=== PATIENT | female | born 1945 | race Caucasian/White ===

== ENCOUNTER 2018-11-11 20:20 | Inpatient (IN) | payer MEDICARE, MEDICAID ==
[~2018-11-11] VITALS: Ht 162.6 cm; Wt 131.7 kg
[2018-11-11] MEDS ORDERED: ACETAMINOPHEN TAB 650MG DOSE (2X325MG) PO PRN (22:00)
[2018-11-11] MEDS ORDERED: MOM 30ML SUSPENSION UDC PO PRN (22:00)
[2018-11-11] MEDS ORDERED: MAALOX 30 ML SUSP *UDC PO PRN (22:00)
[2018-11-11 22:06] VITALS: BP 125/77
[2018-11-11 22:21] LABS: HEMATOCRIT 42.2 % (36.0-47.0); HEMOGLOBIN 13.5 g/dl (12.0-15.5); MEAN CORPUSCULAR HEMOGLOBIN 28.8 pg (27.0-33.0); MEAN CORPUSCULAR VOLUME 90.2 fl (80.0-96.0); PLATELET COUNT, AUTOMATED 291 10^3/uL (150-450); RED BLOOD COUNT 4.68 10^6/uL (4.00-5.40); WHITE BLOOD COUNT 7.9 10^3/uL (4.0-10.0)
[2018-11-11 22:34] LABS: INR 2.44
[2018-11-11] MEDS ORDERED: CORE6.25 PO (23:47)
[2018-11-11] MEDS ORDERED: METO25TA PO (23:47)
[2018-11-11] MEDS ORDERED: FLUO40CA PO (23:47)
[2018-11-11] MEDS ORDERED: AMIO200T40 PO (23:47)
[2018-11-11] MEDS ORDERED: XARE20TA PO (23:47)
[2018-11-11] MEDS ORDERED: KLOR10TA76 PO (23:47)
[2018-11-11] MEDS ORDERED: PANT40TA3 PO (23:47)
[2018-11-11] MEDS ORDERED: BUSP10TA PO (23:47)
[2018-11-11] MEDS ORDERED: CARD240C5 PO (23:47)
[2018-11-11] MEDS ORDERED: SILV1CRE60 TOP (23:47)
[2018-11-11] MEDS ORDERED: LASI80TA3 PO (23:47)
[2018-11-11] MEDS ORDERED: PRAV40TA2 PO (23:47)
[2018-11-11] MEDS ORDERED: KEFL500C17 PO (23:47)
[2018-11-11] MEDS ORDERED: CVS1CAP2 PO (23:47)
[2018-11-12] MEDS: NYSTATIN 100,000 UNITS/GM TOPICAL PWD 15 GM TOP SCH ×3 (00:12→21:13)
--- NOTE | 2018-11-12 00:18 | HPEPDOC ---
General Date of Admission November 11, 2018 at 21:42 Chief Complaint The patient is a 73-year-old female admitted with a reason for visit of CHF. Source: Patient, RN/MD History of Present Illness Ms. Rudolph is a 73 years old woman with hx/o AF and possibly CHF. She is transferred from [facility] for management of CHF due to lack of bed availability there. Pt c/o exertional dyspnea, progressively worsening since fall last year. Now she is so weak that she can hardly walk. She denies ever b eing diagnosed of "heart failure" or "CHF". She says she knows she has "AFib" and "big heart". Pt takes high dose Lasix and metolazone at home. Pt also c/o weakness and dizzy. Denies noticing any increase in leg swelling. At [facility], CT chest showed bilateral lung opacities, interpreted as "possible fibrosis, infiltrates or pulmonary edema". BNP 1666; Troponin normal. Pt Alvaro cough, chest pain, fever, chills or other change in her usual state of health. She was being treated for leg cellulitis with Keflex; but it looks like stasis dermatitis than any infectious process. Home Medications Scheduled Amiodarone HCl (Amiodarone HCl) 200 Mg Tablet, 200 MG PO BID, (Reported) Buspirone HCl (Buspirone HCl) 10 Mg Tablet, 10 MG PO BID, (Reported) Carvedilol (Coreg) 6.25 Mg Tablet, 6.25 MG PO BID, (Reported) Cephalexin (Keflex) 500 Mg Capsule, 500 MG PO TID, (Reported) FOR 10 DAYS Diltiazem Hcl (Cardizem Cd) 240 Mg Cap.er.24h, 240 MG PO DAILY, (Reported) Fluoxetine Hcl (Fluoxetine HCl) 40 Mg Capsule, 40 MG PO QAM, (Reported) Furosemide (Lasix) 80 Mg Tablet, 80 MG PO BID, (Reported) Lactobacillus Combo No.10 (Probiotic) 1 Each Capsule, 1 CAP PO BID, (Reported) Metolazone (Metolazone) 2.5 Mg Tablet, 2.5 MG PO BID, (Reported) Pantoprazole Sodium (Pantoprazole Sodium) 40 Mg Tablet.dr, 40 MG PO DAILY, (Reported) Potassium Chloride (Klor-Con M10) 10 Meq Tab.er.prt, 10 MEQ PO BID, (Reported) Pravastatin Sodium (Pravastatin Sodium) 40 Mg Tablet, 40 MG PO DAILY, (Reported) Rivaroxaban (Xarelto) 20 Mg Tablet, 20 MG PO DAILY, (Reported) Silver Sulfadiazine (Silvadene) 20 Gm Cream..g., 1 DOSE TOP DAILY, (Reported) APPLY TO AFFECTED AREA OF LEFT LEG Allergies Coded Allergies: TAPE (Verified Allergy, Unknown, 01/22/14) Past Medical History Medical History AF, PE, Chronic Lymphedema of the legs, HLD, CKD 3 Surgical History none reported Family History Significant Family History: No pertinent family hx Social History * Smoker: Denies Drugs: denies A-FIB/CHADSVASC A-FIB History Current/History of A-Fib/PAF?: Yes Current Oral Anticoagulant The: Yes Review of Systems Constitutional: Denies: Chills, Fever Eyes: Denies: Pain ENT: Denies: Head Aches Skin: Reports: Rash (bilateral leg dermatitis, chronic), Lesions Pulmonary: Reports: Dyspnea; Denies: Cough Cardiovascular: Reports: Edema; Denies: Chest Pain, Palpitations Gastrointestinal: Denies: Nausea, Vomiting, Abdominal Pain, Diarrhea, Constipation Genitourinary: Denies: Dysuria, Frequency Musculoskeletal: Denies: Neck Pain, Back Pain Neurological: Reports: Weakness; Denies: Numbness, Change in speech, Confusion Psych: Reports: Mood Normal; Denies: Anxiety Physical Examination General Exam: Positive: Alert, No Acute Distress Eye Exam: Positive: PERRLA ENT Exam: Positive: Atraumatic Neck Exam: Positive: Supple; Negative: JVD Chest Exam: Positive: Clear to auscultation, Rhonchi (minor ronchi) Heart Exam: Positive: Irregular Rhythm; Negative: Murmurs Abdomen Exam: Positive: Normal bowel sounds, Soft, Tenderness Extremity Exam: Positive: Edema (gross edema of b/l) Skin Exam: Positive: Nl turgor and temperature, Rash; Negative: Breakdown, Lesion Neuro Exam: Positive: Normal Speech, Strength at 5/5 X4 ext Psych Exam: Positive: Mental status NL, Mood NL Vital Signs Vital Signs Date Time Temp Pulse Resp B/P (MAP) Pulse Ox O2 Delivery O2 Flow Rate FiO2 11/11/18 22:06 99.5 115 16 125/77 (93) 95 2.0 Laboratory Data Labs 24H Laboratory Tests 2 11/11/18 22:15: Nucleated Red Blood Cells % (auto) 0.0, Prothrombin Time 27.0H, Prothromb Time International Ratio 2.44, Troponin I < 0.02 CBC/BMP Laboratory Tests 11/11/18 22:15 Red Blood Count 4.68, Mean Corpuscular Volume 90.2, Mean Corpuscular Hemoglobin 28.8, Mean Corpuscular Hemoglobin Concent 32.0, Red Cell Distribution Width 13.9 Assessment/Plan CHF Exacerbation, Acute on Chronic, with Pulmonary Edema and Hypoxia - No indication of pneumonia - Admit to inpatient - IV Lasix, I/O, daily wt; monitor electrolytes - Echo AF - Rate controlled - Continue home meds, including Xarelto Plan / VTE VTE Prophylaxis Ordered?: No VTE Exclusion Mechanical Proph: Other VTE Exclusion Pharmacological: Other Plan Anticipated Discharge: Home With Services JESSIE RICCI MD November 12, 2018 00:18
[2018-11-12 01:53] LABS: ALBUMIN 3.2 GM/DL (3.2-5.2); ALT/SGPT 17 U/L (12-78); BILIRUBIN,TOTAL 0.5 MG/DL (0.2-1.0); BLOOD UREA NITROGEN 35 MG/DL (7-18); CALCIUM LEVEL 9.1 MG/DL (8.8-10.2); CARBON DIOXIDE LEVEL 40 MEQ/L (21-32); CHLORIDE LEVEL 82 MEQ/L (98-107); CREATININE FOR GFR 2.08 MG/DL (0.55-1.30); GLOMERULAR FILTRATION RATE 24.8 (>39); GLUCOSE, FASTING 169 MG/DL (70-100); NT-PRO BNP 1636 PG/ML (<125); POTASSIUM SERUM 2.9 MEQ/L (3.5-5.1); SODIUM LEVEL 132 MEQ/L (136-145); TOTAL PROTEIN 8.3 GM/DL (6.4-8.2); TROPONIN I < 0.02 NG/ML (< 0.10)
[2018-11-12] MEDS ORDERED: POTASSIUM CHLORIDE 10 MEQ SR TABLET PO ONE ×2 (02:15→08:00)
[2018-11-12 04:00] VITALS: BP 140/88
[2018-11-12 05:41] LABS: HEMATOCRIT 40.2 % (36.0-47.0); HEMOGLOBIN 13.2 g/dl (12.0-15.5); MEAN CORPUSCULAR HEMOGLOBIN 28.5 pg (27.0-33.0); MEAN CORPUSCULAR HGB CONC 32.8 g/dl (32.0-36.5); MEAN CORPUSCULAR VOLUME 86.8 fl (80.0-96.0); PLATELET COUNT, AUTOMATED 296 10^3/uL (150-450); RED BLOOD COUNT 4.63 10^6/uL (4.00-5.40); WHITE BLOOD COUNT 7.4 10^3/uL (4.0-10.0)
[2018-11-12 05:45] LABS: CALCIUM LEVEL 9.6 MG/DL (8.8-10.2); CREATININE FOR GFR 2.08 MG/DL (0.55-1.30); GLOMERULAR FILTRATION RATE 24.8 (>39)
[2018-11-12] MEDS: FUROSEMIDE 40 MG/4 ML VIAL (J1940) IV SCH ×3 (07:50→23:38)
[2018-11-12 08:00] VITALS: BP 119/69
[2018-11-12] MEDS ORDERED: SLF 3 ML SYR IV PRN (09:00)
[2018-11-12] MEDS: busPIRone 10 MG TAB PO SCH ×2 (09:27→21:12)
[2018-11-12] MEDS: PANTOPRAZOLE 40MG TAB (PROTONIX) PO SCH (09:27)
[2018-11-12] MEDS: FLUoxetine 20 MG CAP PO SCH (09:27)
[2018-11-12] MEDS: POTASSIUM CHLORIDE 10 MEQ SR TABLET PO SCH ×2 (09:28→21:12)
[2018-11-12] MEDS: AMIODARONE 200 MG TAB (PACERONE) PO SCH ×2 (09:28→21:12)
[2018-11-12] MEDS: PRAVASTATIN 20 MG TAB PO SCH (09:28)
[2018-11-12] MEDS: RIVAROXABAN 20 MG TAB (XARELTO) PO SCH (09:29)
[2018-11-12] MEDS: CARVedilol 6.25 MG TAB PO SCH ×2 (09:30→21:13)
[2018-11-12] MEDS: metOLazone 2.5 MG TAB PO SCH ×2 (09:30→21:12)
[2018-11-12] MEDS: SILVER SULFADIAZINE 1% CR 50 GM JAR TOP SCH (09:39)
[2018-11-12 12:00] VITALS: BP 120/65
[2018-11-12] MEDS: SLF 3 ML SYR IV SCH ×2 (14:19→21:13)
--- NOTE | 2018-11-12 14:27 | IPNPDOC ---
Date Seen The patient was seen on 11/12/18. Progress Note SUBJECTIVE: Reports feeling better this morning. Looks comfortable. HR still elevated in low 100s Sat 98% on 2L NC, afebrile overnight. OBJECTIVE PHYSICAL EXAMINATION: VITAL SIGNS: Please see below. General: No acute distress, Alert, morbidly obese BMI 49.9. Eyes: Normal sclera, EOMI, MISAEL HENT: Atraumatic, neck supple, moist mucous membranes Cardiovascular: Normal rate, normal rhythm. No murmurs appreciated. Pulmonary: Difficult to appreciate breath sounds due to body habitus, no wheezin g/rales/ronchi appreciated. GI: Soft, nontender, nondistended Skin: Warm and dry Neuro: CN grossly intact. No focal deficits. Strengths equal b/l. Psych: oriented x 3 LABORATORY DATA, IMAGING STUDIES, MICROBIOLOGY: Please see below. ASSESSMENT AND PLAN: 1. CHF exacerbation - No known ECHO in the past. - f/u ECHO. - c/w diuresis IV Lasix. - Daily weights, strict I/O. 2. AF - Tachycardic to HR low 100s. - c/w home meds for now. - Xarelto, Cardizem and Amiodarone. DVT: Xarelto A-FIB/CHADSVASC A-FIB History Current/History of A-Fib/PAF?: Yes Current Oral Anticoagulant The: Yes VS, I&O, 24H, Fishbone Vital Signs/I&O Vital Signs Date Time Temp Pulse Resp B/P (MAP) Pulse Ox O2 Delivery O2 Flow Rate FiO2 11/12/18 12:00 97.9 108 16 120/65 (83) 98 2.0 I&O- Last 24 Hours up to 6 AM 11/12/18 06:00 Intake Total 660 ml Output Total 775 ml Balance -115 ml Laboratory Data 24H LABS Laboratory Tests 2 11/11/18 22:15: Nucleated Red Blood Cells % (auto) 0.0, Prothrombin Time 27.0H, Prothromb Time International Ratio 2.44, Troponin I < 0.02 11/12/18 01:01: Troponin I < 0.02, Anion Gap 10, Glomerular Filtration Rate 24.8L, Blood Urea Nitrogen 35H, Creatinine 2.08H, Sodium Level 132L, Potassium Level 2.9*L, Chloride Level 82L, Carbon Dioxide Level 40H, Calcium Level 9.1, Aspartate Amino Transf (AST/SGOT) 12, Alanine Aminotransferase (ALT/SGPT) 17, Alkaline Phosphatase 87, Total Bilirubin 0.5, Total Protein 8.3H, Albumin 3.2, UA-Cyl-K-Type Natriuretic Peptide 1636H, Albumin/Globulin Ratio 0.63L 11/12/18 04:55: Nucleated Red Blood Cells % (auto) 0.0, Anion Gap 9, Glomerular Filtration Rate 24.8L, Blood Urea Nitrogen 34H, Creatinine 2.08H, Sodium Level 132L, Potassium Level 3.0L, Chloride Level 84L, Carbon Dioxide Level 39H, Calcium Level 9.6 CBC/BMP Laboratory Tests 11/11/18 22:15 Red Blood Count 4.68, Mean Corpuscular Volume 90.2, Mean Corpuscular Hemoglobin 28.8, Mean Corpuscular Hemoglobin Concent 32.0, Red Cell Distribution Width 13.9 11/12/18 01:01 Calcium Level 9.1, Aspartate Amino Transf (AST/SGOT) 12, Alanine Aminotransferase (ALT/SGPT) 17, Alkaline Phosphatase 87, Total Bilirubin 0.5, Total Protein 8.3 H, Albumin 3.2 11/12/18 04:55 Red Blood Count 4.63, Mean Corpuscular Volume 86.8, Mean Corpuscular Hemoglobin 28.5, Mean Corpuscular Hemoglobin Concent 32.8, Red Cell Distribution Width 13.9, Calcium Level 9.6 PHILIPPE POLANCO MD November 12, 2018 14:27
[2018-11-12 16:00] VITALS: BP 160/73
[2018-11-12 20:00] VITALS: BP 125/91
[2018-11-13] VITALS: BP 135/89
[2018-11-13] MEDS: SLF 3 ML SYR IV SCH ×3 (06:35→21:08)
[2018-11-13 06:38] LABS: CALCIUM LEVEL 9.7 MG/DL (8.8-10.2); CREATININE FOR GFR 2.1 MG/DL (0.55-1.30); GLOMERULAR FILTRATION RATE 24.6 (>39); POTASSIUM SERUM 3.1 MEQ/L (3.5-5.1)
[2018-11-13 08:00] VITALS: BP 122/72
[2018-11-13] MEDS ORDERED: POTASSIUM CHLORIDE 10 MEQ SR TABLET PO ONE (08:00)
[2018-11-13] MEDS: FUROSEMIDE 40 MG/4 ML VIAL (J1940) IV SCH (08:54)
[2018-11-13] MEDS: busPIRone 10 MG TAB PO SCH ×2 (08:54→21:03)
[2018-11-13] MEDS: PRAVASTATIN 20 MG TAB PO SCH (08:54)
--- NOTE | 2018-11-13 08:54 | ECHO ---
DATE OF STUDY: 11/12/2018 REQUESTING PHYSICIAN: Dr. Julien Hayden INDICATION: Congestive heart failure. HEIGHT: 163 cm. WEIGHT: 132 kg. DIMENSIONS: IVS 1.0 LV 3.3 LVPW 1.2 LA 3.8 Aorta 2.9 IVC: 1.6 FINDINGS: The study is of fair technical quality, corresponding to the patient's morbid obesity. Left ventricle is of normal size, as in normal systolic function. I estimate ejection fraction (EF) about 65% to 70%. This is based on fair-quality views, and certainly subtle wall motion abnormalities could have been missed. Right ventricle does not appear grossly enlarged. There is severe biatrial enlargement. All four cardiac valves were fairly well seen. There is mild aortic and mitral valve sclerosis but no other abnormalities. No pericardial effusion is noted. Inferior vena cava is normal size. Aortic root is normal. Aortic arch and abdominal aorta were not seen. Doppler interrogation reveals trace aortic insufficiency, trace mitral insufficiency, and mild tricuspid insufficiency. Calculated pulmonary artery pressure is around 40 mmHg, corresponding to moderate pulmonary hypertension. Trace pulmonic insufficiency is also seen. Evaluation of diastolic function is inconclusive due to underlying atrial fibrillation with controlled rate. CONCLUSIONS: 1. The study is of fair technical quality. 2. Normal left ventricle (LV) size with borderline left ventricular hypertrophy (LVH) and preserved LV systolic function. 3. No hemodynamically significant valvular disease. 4. Severe biatrial enlargement. 5. Likely normal central venous pressure but suggestive of moderate pulmonary hypertension. COMMENT: Subacute bacterial endocarditis (SBE) prophylaxis not recommended.
[2018-11-13] MEDS: AMIODARONE 200 MG TAB (PACERONE) PO SCH ×2 (08:55→21:04)
[2018-11-13] MEDS: metOLazone 2.5 MG TAB PO SCH ×2 (08:55→21:08)
[2018-11-13] MEDS: PANTOPRAZOLE 40MG TAB (PROTONIX) PO SCH (08:55)
[2018-11-13] MEDS: FLUoxetine 20 MG CAP PO SCH (08:55)
[2018-11-13] MEDS: CARVedilol 6.25 MG TAB PO SCH ×2 (08:57→21:08)
[2018-11-13] MEDS: RIVAROXABAN 20 MG TAB (XARELTO) PO SCH (08:57)
[2018-11-13] MEDS: NYSTATIN 100,000 UNITS/GM TOPICAL PWD 15 GM TOP SCH ×2 (08:58→21:08)
[2018-11-13] MEDS: SILVER SULFADIAZINE 1% CR 50 GM JAR TOP SCH (08:58)
[2018-11-13] MEDS: POTASSIUM CHLORIDE 10 MEQ SR TABLET PO SCH ×2 (10:30→21:04)
[2018-11-13 12:00] VITALS: BP 119/71
--- NOTE | 2018-11-13 12:21 | IPNPDOC ---
Date Seen The patient was seen on 11/13/18. Progress Note SUBJECTIVE: Reports feeling better, less SOB with exertion. Sitting up on chair. Tremors/shaky with PT, plan to add OT. Urine output had been minimal despite IV Lasix around the clock, although she re ports that she feel swelling on her face and body had resolved. OBJECTIVE PHYSICAL EXAMINATION: VITAL SIGNS: Please see below. General: No acute distress, Alert, morbidly obese BMI 49.9. Eyes: Normal sclera, EOMI, MISAEL HENT: Atraumatic, neck supple, moist mucous membranes Cardiovascular: Normal rate, normal rhythm. No murmurs appreciated. Pulmonary: Difficult to appreciate breath sounds due to body habitus, no wheezing/rales/ronchi appreciated. GI: Soft, nontender, nondistended Skin: Warm and dry Neuro: CN grossly intact. No focal deficits. Strengths equal b/l. Psych: oriented x 3 LABORATORY DATA, IMAGING STUDIES, MICROBIOLOGY: Please see below. ASSESSMENT AND PLAN: 1. ? Moderate pulmonary HTN - Initial suspected CHF but ECHO showed normal LV function with likely moderate pulmonary artery pressure 40 mmHg. - c/w diuresis but appeared euvolemic now, to only give 40 mg IV daily. - Daily weights, strict I/O. - Optimize strength, likely can be d/c once clear by PT/OT. 2. AF - Tachycardic to HR low 100s. - c/w home meds for now. - Xarelto, Cardizem and Amiodarone. DVT: Xarelto A-FIB/CHADSVASC A-FIB History Current/History of A-Fib/PAF?: Yes Current Oral Anticoagulant The: Yes VS, I&O, 24H, Fishbone Vital Signs/I&O Vital Signs Date Time Temp Pulse Resp B/P (MAP) Pulse Ox O2 Delivery O2 Flow Rate FiO2 11/13/18 08:57 92 122/72 11/13/18 08:00 98.2 16 99 2.0 I&O- Last 24 Hours up to 6 AM 11/13/18 06:00 Intake Total 1080 ml Output Total 1750 ml Balance -670 ml Laboratory Data 24H LABS Laboratory Tests 2 11/13/18 05:37: Anion Gap 4L, Glomerular Filtration Rate 24.6L, Blood Urea Nitrogen 46H, Creatinine 2.10H, Sodium Level 133L, Potassium Level 3.1L, Chloride Level 87L, Carbon Dioxide Level 42H, Calcium Level 9.7 CBC/BMP Laboratory Tests 11/13/18 05:37 Calcium Level 9.7 PHILIPPE POLANCO MD November 13, 2018 12:21
[2018-11-13 16:00] VITALS: BP 125/71
[2018-11-13 20:00] VITALS: BP 113/71
[2018-11-14] VITALS (7 sets, daily range): BP systolic 112–132; BP diastolic 65–88
[2018-11-14] MEDS: SLF 3 ML SYR IV SCH ×3 (06:19→20:35)
[2018-11-14 06:54] LABS: CALCIUM LEVEL 9.2 MG/DL (8.8-10.2); CREATININE FOR GFR 2.11 MG/DL (0.55-1.30); GLOMERULAR FILTRATION RATE 24.4 (>39); POTASSIUM SERUM 3.4 MEQ/L (3.5-5.1)
[2018-11-14] MEDS ORDERED: POTASSIUM CHLORIDE 10 MEQ SR TABLET PO ONE (08:00)
[2018-11-14] MEDS: busPIRone 10 MG TAB PO SCH ×2 (08:36→20:34)
[2018-11-14] MEDS: CARVedilol 6.25 MG TAB PO SCH ×2 (08:36→20:34)
[2018-11-14] MEDS: metOLazone 2.5 MG TAB PO SCH ×2 (08:36→20:35)
[2018-11-14] MEDS: PRAVASTATIN 20 MG TAB PO SCH (08:36)
[2018-11-14] MEDS: POTASSIUM CHLORIDE 10 MEQ SR TABLET PO SCH ×2 (08:36→20:34)
[2018-11-14] MEDS: RIVAROXABAN 20 MG TAB (XARELTO) PO SCH (08:37)
[2018-11-14] MEDS: SILVER SULFADIAZINE 1% CR 50 GM JAR TOP SCH (08:37)
[2018-11-14] MEDS: NYSTATIN 100,000 UNITS/GM TOPICAL PWD 15 GM TOP SCH ×2 (08:37→20:35)
[2018-11-14] MEDS: AMIODARONE 200 MG TAB (PACERONE) PO SCH ×2 (08:37→20:34)
[2018-11-14] MEDS: FLUoxetine 20 MG CAP PO SCH (08:37)
[2018-11-14] MEDS: PANTOPRAZOLE 40MG TAB (PROTONIX) PO SCH (08:37)
[2018-11-14] MEDS ORDERED: FUROSEMIDE 40 MG/4 ML VIAL (J1940) IV SCH (09:00)
--- NOTE | 2018-11-14 10:20 | IPNPDOC ---
Date Seen The patient was seen on 11/14/18. Progress Note SUBJECTIVE: Reports feeling better and that she has been walking well on her own. However, PT reports that patient is still weak and still needs further work. No acute events reported overnight. OBJECTIVE PHYSICAL EXAMINATION: VITAL SIGNS: Please see below. General: No acute distress, Alert, morbidly obese BMI 50. Eyes: Normal sclera, EOMI, MISAEL HENT: Atraumatic, neck supple, moist mucous membranes Cardiovascular: Normal rate, normal rhythm. No murmurs appreciated. Pulmonary: Difficult to appreciate breath sounds due to body habitus, no wheezing/rales/ronchi appreciated. GI: Soft, nontender, nondistended Skin: Warm and dry Neuro: CN grossly intact. No focal deficits. Strengths equal b/l. Psych: oriented x 3 LABORATORY DATA, IMAGING STUDIES, MICROBIOLOGY: Please see below. ASSESSMENT AND PLAN: 1. ? Moderate pulmonary HTN - Initial suspected CHF but ECHO showed normal LV function with likely moderate pulmonary artery pressure 40 mmHg. - c/w diuresis but appeared euvolemic now. Will switch back to home dose diuretic. - Daily weights, strict I/O. - Optimize strength, likely can be d/c once clear by PT/OT. 2. AF - Tachycardic to HR low 100s. - c/w home meds for now. - Xarelto, Cardizem and Amiodarone. 3. Morbid obesitiy - BMI 50 DVT: Xarelto A-FIB/CHADSVASC A-FIB History Current/History of A-Fib/PAF?: Yes Current Oral Anticoagulant The: Yes VS, I&O, 24H, Fishbone Vital Signs/I&O Vital Signs Date Time Temp Pulse Resp B/P (MAP) Pulse Ox O2 Delivery O2 Flow Rate FiO2 11/14/18 08:36 87 123/76 11/14/18 08:00 97.8 20 98 11/13/18 08:00 2.0 I&O- Last 24 Hours up to 6 AM 11/14/18 06:00 Intake Total 1320 ml Output Total 1350 ml Balance -30 ml Laboratory Data 24H LABS Laboratory Tests 2 11/14/18 05:44: Anion Gap 6L, Glomerular Filtration Rate 24.4L, Blood Urea Nitrogen 58H, Creatinine 2.11H, Sodium Level 134L, Potassium Level 3.4L, Chloride Level 89L, Carbon Dioxide Level 39H, Calcium Level 9.2 CBC/BMP Laboratory Tests 11/14/18 05:44 Calcium Level 9.2 PHILIPPE POLANCO MD November 14, 2018 10:20
--- NOTE | 2018-11-14 13:29 | IPNPDOC ---
Date Seen The patient was seen on 11/14/18. Progress Note SUBJECTIVE: Patient reports feeling well and has no complaints this morning. Has been working with PT/OT and states that she moves around better but does not feel comfortable going home yet. Reportedly still unsteady from PT perspective at this time. OBJECTIVE PHYSICAL EXAMINATION: VITAL SIGNS: Please see below. General: No acute distress, Alert, morbid obesity BMI 50. Eyes: Normal sclera, EOMI, MISAEL HENT: Atraumatic, neck supple, moist mucous membranes Cardiovascular: Normal rate, normal rhythm. No murmurs appreciated. Pulmonary: Difficult to appreciate breath sounds due to body habitus, no wheezing/rales/ronchi appreciated. GI: Soft, nontender, nondistended Skin: Warm and dry Neuro: CN grossly intact. No focal deficits. Strengths equal b/l. Psych: oriented x 3 LABORATORY DATA, IMAGING STUDIES, MICROBIOLOGY: Please see below. ASSESSMENT AND PLAN: 1. ? Moderate pulmonary HTN - Initial suspected CHF but ECHO showed normal LV function with likely moderate pulmonary artery pressure 40 mmHg. - c/w diuresis but appeared euvolemic now, to resume home diuresis regimen. - Daily weights, strict I/O. - Optimize strength, likely can be d/c once clear by PT/OT. 2. AF - Rate controlled. - c/w home meds for now. - Xarelto, Cardizem and Amiodarone. 3. Morbid obesitiy - BMI 50 - encourage mobility and weight loss. DVT: Xarelto A-FIB/CHADSVASC A-FIB History Current/History of A-Fib/PAF?: No VS, I&O, 24H, Fishbone Vital Signs/I&O Vital Signs Date Time Temp Pulse Resp B/P (MAP) Pulse Ox O2 Delivery O2 Flow Rate FiO2 11/14/18 12:00 98.0 75 20 123/65 (84) 93 11/13/18 08:00 2.0 I&O- Last 24 Hours up to 6 AM 11/14/18 06:00 Intake Total 1320 ml Output Total 1350 ml Balance -30 ml Laboratory Data 24H LABS Laboratory Tests 2 11/14/18 05:44: Anion Gap 6L, Glomerular Filtration Rate 24.4L, Blood Urea Nitrogen 58H, Creatinine 2.11H, Sodium Level 134L, Potassium Level 3.4L, Chloride Level 89L, Carbon Dioxide Level 39H, Calcium Level 9.2 CBC/BMP Laboratory Tests 11/14/18 05:44 Calcium Level 9.2 PHILIPPE POLANCO MD November 14, 2018 13:29
[2018-11-14] MEDS ORDERED: FUROSEMIDE 80 MG TAB PO SCH (17:00)
[2018-11-15 04:00] VITALS: BP 118/65
[2018-11-15] MEDS: SLF 3 ML SYR IV SCH ×3 (05:32→20:56)
[2018-11-15 06:05] LABS: CALCIUM LEVEL 9.2 MG/DL (8.8-10.2); CREATININE FOR GFR 1.92 MG/DL (0.55-1.30); GLOMERULAR FILTRATION RATE 27.3 (>39); POTASSIUM SERUM 2.9 MEQ/L (3.5-5.1)
[2018-11-15] MEDS ORDERED: KCL 10MEQ/100ML SWI (KRUN) 10 MEQ in APPROPRIATE DILUENT 1 EA IV ONE (06:30)
[2018-11-15 08:00] VITALS: BP 134/91
[2018-11-15] MEDS: KCL 10MEQ/100ML SWI (KRUN) 10 MEQ in APPROPRIATE DILUENT 1 EA IV SCH ×2 (08:18→09:30)
[2018-11-15] MEDS: POTASSIUM CHLORIDE 10 MEQ SR TABLET PO SCH ×3 (08:18→20:50)
[2018-11-15] MEDS: busPIRone 10 MG TAB PO SCH ×2 (08:19→20:56)
[2018-11-15] MEDS: PRAVASTATIN 20 MG TAB PO SCH (08:19)
[2018-11-15] MEDS: AMIODARONE 200 MG TAB (PACERONE) PO SCH ×2 (08:20→20:50)
[2018-11-15] MEDS: FUROSEMIDE 40 MG TAB PO SCH ×2 (08:21→16:50)
[2018-11-15] MEDS: PANTOPRAZOLE 40MG TAB (PROTONIX) PO SCH (08:21)
[2018-11-15] MEDS: FLUoxetine 20 MG CAP PO SCH (08:21)
[2018-11-15] MEDS: metOLazone 2.5 MG TAB PO SCH ×2 (08:21→20:48)
[2018-11-15] MEDS: CARVedilol 6.25 MG TAB PO SCH ×2 (08:21→20:51)
[2018-11-15] MEDS: RIVAROXABAN 20 MG TAB (XARELTO) PO SCH (08:21)
[2018-11-15] MEDS: SILVER SULFADIAZINE 1% CR 50 GM JAR TOP SCH (08:22)
[2018-11-15] MEDS: NYSTATIN 100,000 UNITS/GM TOPICAL PWD 15 GM TOP SCH ×2 (08:22→20:52)
[2018-11-15] MEDS ORDERED: ONDANSETRON 4MG/2ML VIAL (J2405) As Ordered ONE (10:59)
[2018-11-15] MEDS ORDERED: ONDANSETRON 4MG/2ML VIAL (J2405) IV ONE (11:00)
[2018-11-15 12:00] VITALS: BP 131/75
[2018-11-15 16:00] VITALS: BP 130/81
--- NOTE | 2018-11-15 19:45 | IPNPDOC ---
Date Seen The patient was seen on 11/15/18. Progress Note SUBJECTIVE: Patient continue to state that she feels better each day. PT/OT ongoing, still unsteady. Remove peña catheter today. OBJECTIVE PHYSICAL EXAMINATION: VITAL SIGNS: Please see below. General: No acute distress, Alert, morbid obesity BMI 50. Eyes: Normal sclera, EOMI, MISAEL HENT: Atraumatic, neck supple, moist mucous membranes Cardiovascular: Normal rate, normal rhythm. No murmurs appreciated. Pulmonary: Difficult to appreciate breath sounds due to body habitus, no wheezing/rales/ronchi appreciated. GI: Soft, nontender, nondistended Skin: Warm and dry Neuro: CN grossly intact. No focal deficits. Strengths equal b/l. Psych: oriented x 3 LABORATORY DATA, IMAGING STUDIES, MICROBIOLOGY: Please see below. ASSESSMENT AND PLAN: 1. ? Moderate pulmonary HTN - Initial suspected CHF but ECHO showed normal LV function with likely moderate pulmonary artery pressure 40 mmHg. - c/w diuresis but appeared euvolemic now, to resume home diuresis regimen. - Daily weights, strict I/O. - Optimize strength, likely can be d/c once clear by PT/OT. 2. AF - Rate controlled. - c/w home meds for now. - Xarelto, Cardizem and Amiodarone. 3. Morbid obesitiy - BMI 50 - encourage mobility and weight loss. DVT: Xarelto A-FIB/CHADSVASC A-FIB History Current/History of A-Fib/PAF?: Yes Current PO Anticoag Therapy: Yes VS, I&O, 24H, Fishbone Vital Signs/I&O Vital Signs Date Time Temp Pulse Resp B/P (MAP) Pulse Ox O2 Delivery O2 Flow Rate FiO2 11/15/18 16:00 97.7 78 18 130/81 (97) 93 11/13/18 08:00 2.0 I&O- Last 24 Hours up to 6 AM 11/15/18 06:00 Intake Total 1350 ml Output Total 3125 ml Balance -1775 ml Laboratory Data 24H LABS Laboratory Tests 2 11/15/18 05:30: Anion Gap 7L, Glomerular Filtration Rate 27.3L, Blood Urea Nitrogen 57H, Creatin ine 1.92H, Sodium Level 134L, Potassium Level 2.9*L, Chloride Level 86L, Carbon Dioxide Level 41H, Calcium Level 9.2 CBC/BMP Laboratory Tests 11/15/18 05:30 Calcium Level 9.2 11/15/18 14:54 PHILIPPE POLANCO MD November 15, 2018 19:45
[2018-11-15 20:00] VITALS: BP 153/96
[2018-11-15 23:59] VITALS: BP 111/70
[2018-11-16 04:00] VITALS: BP 107/67
[2018-11-16 06:15] LABS: CALCIUM LEVEL 9.7 MG/DL (8.8-10.2); CREATININE FOR GFR 1.96 MG/DL (0.55-1.30); GLOMERULAR FILTRATION RATE 26.6 (>39); POTASSIUM SERUM 3.5 MEQ/L (3.5-5.1)
[2018-11-16] MEDS: SLF 3 ML SYR IV SCH ×2 (06:28→14:00)
[2018-11-16 08:00] VITALS: BP 117/76
[2018-11-16] MEDS: NYSTATIN 100,000 UNITS/GM TOPICAL PWD 15 GM TOP SCH (08:04)
[2018-11-16] MEDS: PANTOPRAZOLE 40MG TAB (PROTONIX) PO SCH (08:04)
[2018-11-16] MEDS: SILVER SULFADIAZINE 1% CR 50 GM JAR TOP SCH (08:04)
[2018-11-16] MEDS: CARVedilol 6.25 MG TAB PO SCH (08:05)
[2018-11-16] MEDS: busPIRone 10 MG TAB PO SCH (08:05)
[2018-11-16] MEDS: FLUoxetine 20 MG CAP PO SCH (08:05)
[2018-11-16] MEDS: POTASSIUM CHLORIDE 10 MEQ SR TABLET PO SCH (08:06)
[2018-11-16] MEDS: metOLazone 2.5 MG TAB PO SCH (08:06)
[2018-11-16] MEDS: RIVAROXABAN 20 MG TAB (XARELTO) PO SCH (08:06)
[2018-11-16 08:07] VITALS: BP 117/76
[2018-11-16] MEDS: PRAVASTATIN 20 MG TAB PO SCH (08:07)
[2018-11-16] MEDS: AMIODARONE 200 MG TAB (PACERONE) PO SCH (08:07)
[2018-11-16] MEDS ORDERED: FUROSEMIDE 80 MG TAB PO SCH (09:00)
[2018-11-16 12:00] VITALS: BP 124/74
[2018-11-16 16:00] VITALS: BP 105/76
--- NOTE | 2018-11-16 17:03 | DS.PDOC ---
Discharge Summary General Date of Admission November 11, 2018 at 21:42 Date of Discharge 11/16/18 Discharge Summary PROCEDURES PERFORMED DURING STAY: [None]. ADMITTING DIAGNOSES: 1. Suspected HF 2. Afib 3. Morbid obesity DISCHARGE DIAGNOSES: 1. Moderate pulmonary HTN with fluid overload 2. Afib 3. Morbid obesity COMPLICATIONS/CHIEF COMPLAINT: CHF. HISTORY OF PRESENT ILLNESS: "Ms. Rudolph is a 73 years old woman with hx/o AF and possibly CHF. She is transferred from [facility] for management of CHF due to lack of bed availability there. Pt c/o exertional dyspnea, progressively worsening since f all last year. Now she is so weak that she can hardly walk. She denies ever being diagnosed of "heart failure" or "CHF". She says she knows she has "AFib" and "big heart". Pt takes high dose Lasix and metolazone at home. Pt also c/o weakness and dizzy. Denies noticing any increase in leg swelling. At [facility], CT chest showed bilateral lung opacities, interpreted as "possible fibrosis, infiltrates or pulmonary edema". BNP 1666; Troponin normal. Pt Alvaro cough, chest pain, fever, chills or other change in her usual state of health. She was being treated for leg cellulitis with Keflex; but it looks like stasis dermatitis than any infectious process." HOSPITAL COURSE: Patient was diuresed with IV Lasix for presumed HF with improvement in volume status. However, ECHO showed EF within normal limit with evidence of moderate pulmonary HTN. No significant weight changes however but symptoms resolved. Patient however had limited mobility and required work with PT daily to regain strength to safely go home. Patient reports feeling better and denies any complaints requesting to go home. She is discharged to follow up with PCP and resume home medications. Script also written for a walker. DISCHARGE MEDICATIONS: Please see below. ALLERGIES: Please see below. PHYSICAL EXAMINATION ON DISCHARGE: VITAL SIGNS: Please see below. General: No acute distress, Alert, morbid obesity BMI 50. Eyes: Normal sclera, EOMI, MISAEL HENT: Atraumatic, neck supple, moist mucous membranes Cardiovascular: Normal rate, normal rhythm. No murmurs appreciated. Pulmonary: Difficult to appreciate breath sounds due to body habitus, no wheezing/rales/ronchi appreciated. GI: Soft, nontender, nondistended Skin: Warm and dry Neuro: CN grossly intact. No focal deficits. Strengths equal b/l. Psych: oriented x 3 LABORATORY DATA: Please see below. IMAGING: None ACTIVITY: [As tolerated]. DIET: Cardiac diet DISCHARGE PLAN: f/u with PCP within 1 week DISPOSITION: Home. DISCHARGE INSTRUCTIONS: 1. f/u with PCP within 1 week ITEMS TO FOLLOWUP ON ON OUTPATIENT: 1. None DISCHARGE CONDITION: [Stable]. TIME SPENT ON DISCHARGE: 32 minutes. Vital Signs/I&Os Vital Signs Date Time Temp Pulse Resp B/P (MAP) Pulse Ox O2 Delivery O2 Flow Rate FiO2 11/16/18 16:00 97.3 75 18 105/76 (86) 94 11/13/18 08:00 2.0 I&O- Last 24 Hours up to 6 AM 11/16/18 06:00 Intake Total 840 ml Output Total 715 ml Balance 125 ml Laboratory Data Labs 24H Laboratory Tests 2 11/16/18 05:27: Anion Gap 8, Glomerular Filtration Rate 26.6L, Blood Urea Nitrogen 52H, Creatinine 1.96H, Sodium Level 134L, Potassium Level 3.5, Chloride Level 86L, Carbon Dioxide Level 40H, Calcium Level 9.7 CBC/BMP Laboratory Tests 11/16/18 05:27 Calcium Level 9.7 Discharge Medications Scheduled Amiodarone HCl (Amiodarone HCl) 200 Mg Tablet, 200 MG PO BID, (Reported) Buspirone HCl (Buspirone HCl) 10 Mg Tablet, 10 MG PO BID, (Reported) Carvedilol (Coreg) 6.25 Mg Tablet, 6.25 MG PO BID, (Reported) Diltiazem Hcl (Cardizem Cd) 240 Mg Cap.er.24h, 240 MG PO DAILY, (Reported) Fluoxetine Hcl (Fluoxetine HCl) 40 Mg Capsule, 40 MG PO QAM, (Reported) Furosemide (Lasix) 80 Mg Tablet, 80 MG PO BID, (Reported) Lactobacillus Combo No.10 (Probiotic) 1 Each Capsule, 1 CAP PO BID, (Reported) Metolazone (Metolazone) 2.5 Mg Tablet, 2.5 MG PO BID, (Reported) Pantoprazole Sodium (Pantoprazole Sodium) 40 Mg Tablet.dr, 40 MG PO DAILY, (Reported) Potassium Chloride (Klor-Con M10) 10 Meq Tab.er.prt, 10 MEQ PO BID, (Reported) Pravastatin Sodium (Pravastatin Sodium) 40 Mg Tablet, 40 MG PO DAILY, (Reported) Rivaroxaban (Xarelto) 20 Mg Tablet, 20 MG PO DAILY, (Reported) Silver Sulfadiazine (Silvadene) 20 Gm Cream..g., 1 DOSE TOP DAILY, (Reported) APPLY TO AFFECTED AREA OF LEFT LEG Allergies Coded Allergies: TAPE (Verified Allergy, Unknown, 01/22/14) PHILIPPE POLANCO MD November 16, 2018 17:03
== END 2018-11-16 16:55 | disposition home health service (06) | DRG 315 ==
LOC: M PCU 21:42
PROVIDERS: ADMIT Internal Medicine; ATTEND Student in an Organized Health Care Education/Training Program
DX: I27.20 Pulmonary hypertension, unspecified (principal); Z68.43 Body mass index [BMI] 50.0-59.9, adult; I48.91 Unspecified atrial fibrillation; E78.5 Hyperlipidemia, unspecified; J84.10 Pulmonary fibrosis, unspecified; E66.01 Morbid (severe) obesity due to excess calories; E87.70 Fluid overload, unspecified; N18.3 Chronic kidney disease, stage 3 (moderate); I89.0 Lymphedema, not elsewhere classified; Z79.01 Long term (current) use of anticoagulants; Z79.899 Other long term (current) drug therapy; Z91.048 Other nonmedicinal substance allergy status; Z86.711 Personal history of pulmonary embolism